=== PATIENT | male | born 1970 ===

== ENCOUNTER 2025-05-31 11:48 | Day surgery (SDC) | payer OTHER, SELFPAY ==
--- NOTE | 2025-05-31 | PATH_ITS ---
[facility] Accession Number: [id number] No. of containers..02 Tissue . 01 Material submitted: . PART A: colon - SIGMOID POLYP PART B: rectum - RECTAL POLYPS X6 . 01 Diagnosis: A: SIGMOID COLON, POLYPECTOMY: Hyperplastic polyp. - B: RECTUM, POLYPECTOMIES: Fragments of hyperplastic polyp and histologically unremarkable colonic mucosa. Additional deeper levels were examined. [facility] 06/11/2025 1242 Local . 01 Electronically signed: . Carmen Lane MD, Pathologist NPI- [id number] . 01 Gross description: . A. Received in formalin with two identifiers and sigmoid polyp, is a single soft xiong tissue fragment measuring 0.4 cm in greatest dimension. Entirely submitted in cassette A1. B. Received in formalin with two identifiers and rectal polyp, are five soft xiong tissue fragments ranging from 0.2 to 0.6 cm in greatest dimension. Entirely submitted in cassette B1. (AER:[id number]) /[facility] 06/08/2025 0123 Local . 01 Pathologist provided ICD-10: Z12.11 . 01 CPT . 477190, 777661 Specimen Comment: A courtesy copy of this report has been sent to [phone] Performed at: [address] [facility] [address], [place], [place] [id number] MD Don Kim MD Phone: [phone]
--- NOTE | 2025-05-31 13:14 | PM.HP.IH.1 ---
History of Present Illness History of Present Illness Date Patient Seen: 05/31/25 Chief complaint: SDC PFS Social History Smoking Status: Never smoker alcohol intake: current Meds Home Medications and Allergies Home Medications ?Medication ?Instructions ?Recorded ?Confirmed ?Type sodium,potassium,mag sulfates 17.5 See Rx Instructions PO .COMPLEX 05/03/25 05/31/25 Rx gram-3.13 gram-1.6 gram oral soln #354 mL (Suprep Bowel Prep Kit) Allergies Allergy/AdvReac Type Severity Reaction Status Date / Time cat dander AdvReac Intermediate red eye Verified 05/31/25 13:03 raw fish Allergy Mild sob Uncoded 05/31/25 13:03 Exam Narrative Exam Narrative: Oropharynx free of lesions Chest clear to auscultation percussion Cardiac exam reveals no S3 or murmur Assessment & Plan Assessment & Plan narrative: In for 1st screening colonoscopy. Risks, benefits, alternatives have been explained. Time-Based Coding :: [TOTAL MINUTES] spent with patient and on the chart (including review of chart, obtaining history, exam, reviewing outside data, placing orders, documenting exam and treatment plan, and counseling patient) on [DATE]. [address] Court Operations Clerk Document charge(s): No
[2025-05-31 13:15] VITALS: BP 133/88; PULSE 72; RESP 16; TEMP 36.5; O2SAT 97
--- NOTE | 2025-05-31 13:16 | P.OP.COLON_ITS ---
Operative Date/Time/Diagnoses Date of procedure: 05/31/25 Time of procedure: 14:15 Pre-op diagnosis: See indication and findings Post-op diagnosis: same Procedure & Clinicians Study performed: Colonoscopy Same procedure(s) as scheduled: Yes Indications: First screening for colon cancer Surgeon: Kandy Ferris Anesthesia Type: Other Procedure Notes Procedure in detail: After informed consent was obtained the patient was placed in left lateral decubitus position. The video colonoscope was introduced the rectum slowly advanced cecum. Preparation was good. On slow withdrawal mucosa was carefully examined. The scope was removed. The patient tolerated procedure well. Blood loss none Complications none Sedation mac Findings 1. 6 mm sessile polyp in the distal sigmoid, cold snared and removed completely 2. Several other distal rectal polyps biopsied and removed. The number proximally counted were 6. These were removed with Jumbo biopsy forceps. There were possibly a few other similar size polyps in the rectum. 3. Otherwise negative colonoscopy to cecum We will merely await biopsies here. If any of the rectal polyps automatic glove turner and former to be adenomatous he will need to be scheduled for sigmoidoscopy with APC to treat them all fully. Otherwise repeat colonoscopy in 3-5 years pending results of the pathology
[2025-05-31] MEDS: LACTATED RINGERS 1,000 ML 42 ML IV (13:20)
[2025-05-31 14:16] VITALS: BP 121/76; PULSE 75; RESP 16; TEMP 36.3; O2SAT 99
[2025-05-31 14:20] VITALS: BP 119/80; PULSE 72; RESP 16; O2SAT 99
[2025-05-31 14:25] VITALS: BP 118/77; PULSE 64; RESP 16; TEMP 36.3; O2SAT 99
[2025-05-31 14:30] VITALS: BP 120/75; PULSE 61; RESP 16; O2SAT 99
[2025-05-31 14:36] VITALS: BP 133/87; PULSE 70; RESP 16; TEMP 36.3; O2SAT 99
== END 2025-05-31 14:49 | disposition home or self-care (01) ==
PROVIDERS: PCP Family Medicine; Referring Provider Internal Medicine Gastroenterology; Visit Provider Internal Medicine Gastroenterology
PROC: 0DJD8ZZ Inspection of Lower Intestinal Tract, Via Natural or Artificial Opening Endoscopic (ICD-10-PCS; CPT 45378; principal; 2025-05-31 13:30)
DX: Z12.11 Encounter for screening for malignant neoplasm of colon (principal); K63.5 Polyp of colon; K62.1 Rectal polyp
CPT/HCPCS: 45385; 45380; J2704